=== PATIENT | male | born 1945 | race Caucasian/White ===

== ENCOUNTER 2016-05-22 16:30 | Inpatient (IN) | payer MEDICARE, BC ==
--- NOTE | ~2016-05-22 | A ---
[facility] DATE: 05/24/16 Patient: MONISHA DAI Physician: RAGHAV Address: [address] [place] [address] Room/Bed: [address] [place] [address], Zip: [place] [address] Admit Date: 05/22/16 Date of : 49 Height: 5 8 Weight: 160 72.8 NUTRITIONAL ASSESSMENT: REASON: MD requested for RD to educate pt on 2 gram Na+/ heart healthy diet Diet: 2 gram Na+ 1800 mL fluid restriction Assessment: MD requested for RD to see the patient regarding low sodium/ heart healthy diet, as the pt has apparently already lost weight; however, still consumes high sodium foods. RD spoke with the pt and two family members at bedside. RD discussed the importance of following low sodium diet, in addition to 2 gram Na+ diet strategies in detail with the pt. Pt voiced understanding of the information, and stated "I do not use a salt shaker". RD reviewed foods that are high in sodium (without adding additional salt) and provided suggestions for alternatives. Although the pt voiced understanding of the information, he did not seem motivated to make changes. RD provided printed materials for the pt and his family, as they help him at home. Also provided RD office number for any additional questions. Recommendations: 1. Pt to follow a heart healthy/ 2 gram Na+ diet as instructed by RD, with fluid restriction per MD. Please consult RD for any further nutritional needs. Respectfully, CHAYO MANN RD, [facility] cc: client file
--- NOTE | ~2016-05-22 | CR72 ---
[facility] A Service of [facility] RADIOLOGY TEXT RESULTS PATIENT: MONISHA DAI LOCATION: CEDOF : 47 UNIT #: [id number] AGE: [address]: Delbert Faulkner MD SEX: M ORDER DR: [id number] [facility] [address] [facility]. [place], [place] [address] [id number] MR#: [id number] Acc #: [id number] NAME: MONISHA DAI. : 1945 SEX: M STUDY DATE/TIME: 05/22/2016 16:45 UNIT: CEDOF ROOM: 54856 STUDY DESCRIPTION: CR Chest Single View Portable Attending Physician: Delbert Faulkner M.D. Ordering Physician: Luther Michael M.D. Primary Care Physician: Epi Porter M.D. MEDICAL IMAGING REPORT This report is preliminary unless electronic signature is present EXAM Portable chest INDICATIONS Shortness of air, cough, COPD and dizziness. COMPARISON 02/11/2015. FINDINGS A portable view of the chest is obtained. The heart size and vascularity are normal and the dual-lead pacemaker is in good position. There is very mild interstitial prominence particularly in the right lower lobe, which is new from the prior study. There are no focal infiltrates. IMPRESSION Mild interstitial prominence particularly in the right lower lobe which is more apparent than on 02/11/2015. No infiltrates or effusions are identified. Dictated by... Gabriel Nicole M.D. THIS IS AN ELECTRONICALLY VERIFIED REPORT Gabriel Nicole M.D. at 05/23/2016 8:20 AM JUAN J/sanchez TD: 05/22/2016 23:16 JOB #: [id number] MEDICAL IMAGING REPORT COPY
--- NOTE | ~2016-05-22 | CO ---
Unit #: [id number] #: [id number] Patient: MONISHA PANTOJA [id number] [address] [place], [place] [address] [id number] I MR#: [id number] NAME: MONISHA PANTOJA. ROOM: 332 Age: 71 Sex: M Admission Date: 05/22/2016 : 1945 Attending Physician: Delbert Faulkner M.D. Primary Care Physician: Epi Porter M.D. Consultation Date: 05/23/2016 CONSULTATION REPORT REASON FOR CONSULTATION Respiratory failure, COPD. HISTORY OF PRESENT ILLNESS The patient is a 71-year-old gentleman who has severe COPD, chronic respiratory failure, partially compliance with oxygen, ongoing active tobacco use, severe left ventricular dysfunction. Has had an eight day history of shortness of breath. He states "I tried to fight it off at home by wearing my oxygen." No chest pain, no fever, no hemoptysis. He did have wheezing and white to green sputum. Initially, was on mask ventilation. He has received diuretics, steroids, nebulized bronchodilators and antibiotics and feels better and he currently is on Oxymizer oxygen. PAST MEDICAL HISTORY Remarkable for: 1. Severe end stage COPD. 2. Chronic respiratory failure, partially compliant with oxygen. 3. Severe left ventricular dysfunction with an EF reported to be 15% to 20%. 4. Hyperlipidemia. 5. Hypothyroidism. 6. He has a history of an AICD. 7. Kidney stones. 8. Diverticulitis. 9. Coronary artery disease. MEDICATIONS Medications at home - he states that he is on: 1. Symbicort two puffs twice a day. 2. Ventolin inhaler. 3. Spiriva is listed but he did not mention that when I asked what inhaled medicines he was on. Other medicines listed: 4. Magnesium. 5. Nitesh aspirin. 6. Methimazole. 7. Bystolic. 8. Bumex. ALLERGIES Penicillin with welts. SOCIAL HISTORY Unit #: [id number] #: [id number] Patient: MONISHA PANTOJA He continues to smoke. FAMILY HISTORY No familial lung disease. REVIEW OF SYSTEMS No chest pain, palpitations, abdominal pain, melena, hematochezia, hematuria, dysuria, focal weakness, paresthesia. He did have a little dizziness with his shortness of breath but that is improved. No fever or chills. He states compliance with his CPAP, partial compliance with his oxygen. PHYSICAL EXAMINATION GENERAL: Reveals a patient who is chronically ill-appearing, in no acute distress. Adequate saturations on Oxymizer oxygen. VITAL SIGNS: He is afebrile. Pulse 70, respiratory rate 22, blood pressure is 105/56. 5 foot 8, 162 pounds. HEENT: Pupils equal, round, reactive to light. Sclerae anicteric. Head atraumatic. Neck supple. No supraclavicular or cervical adenopathy appreciated. Mucous membranes moist. He has a few natural teeth in borderline dentition. CHEST: Expiratory wheeze. Prolonged expiratory phase. No definite crackles, no consolidation. CARDIAC EXAMINATION: Reveals regular rate and rhythm. Soft murmur, no gallop. ABDOMEN: Soft, nontender. No hepatomegaly or rebound. EXTREMITIES: No clubbing, cyanosis or edema. No calf tenderness. SKIN: Warm and dry without rash or diaphoresis. NEUROLOGICAL: Grossly intact. No focal muscle or sensory deficits. DIAGNOSTIC STUDIES LABORATORY: Arterial blood gas - pH 7.44, pCO2 41, pO2 139. Initial arterial blood gas - pH 7.46, pCO2 of 38, pO2 of 60 on 2 L. His BUN is 22, creatinine is 1.2. BNP 219. Lactic acid was 2.4, now 1.3. INR normal. Initial cardiac enzymes normal. White blood cell count 15.9, hemoglobin 16.1, platelet count 388. Influenzae screen negative. Urinalysis negative. Blood cultures performed and are pending. Sputum in the past - normal lubna. IMAGING: Chest x-ray - COPD. Borderline enlarged pulmonary arteries. No definite pneumonic infiltrate although there are some mild increased interstitial markings right lower lobe. It was somewhat present two years ago. CARDIOVASCULAR: EKG - PVC, sinus rhythm, nonspecific ST-T wave changes. IMPRESSION Unit #: [id number] #: [id number] Patient: MONISHA PANTOJA 1. Acute exacerbation of chronic obstructive pulmonary disease. 2. Suspect bronchitis, consider pneumonia. 3. Acute on chronic respiratory failure, improving. 4. Severe left ventricular dysfunction with an ejection fraction of 15%. 5. Ongoing active tobacco use. 6. Obstructive sleep apnea, on CPAP. PLAN Maximize pulmonary status, treatment of his COPD with IV steroids, antibiotics, nebulized bronchodilators. At this point, antibiotics for bronchitis really not much evidence of pneumonia by exam history or labs except for mild leukocytosis. Agree with diuresis and keeping on the dry side. I have discussed with the patient and family and he clearly states that he does not want to be resuscitated. Certainly no smoking is of great benefit and this also was discussed with the patient and family. Thank you very much for allowing me to participate in the care of Mr. Pantoja. Dictated by... Payam Kumar M.D. IFRAH/cortney TD: 05/24/2016 06:05 JOB #: [id number] CONSULTATION REPORT X Payam Kumar MD X CONSULTATION REPORT
--- NOTE | ~2016-05-22 | CO ---
Unit #: [id number] #: [id number] Patient: MONISHA DAI [id number] [address] [place], [place] [address] [id number] I MR#: [id number] NAME: MONISHA DAI. ROOM: 332 Age: 71 Sex: M Admission Date: 05/22/2016 : 1945 Attending Physician: Delbert Faulkner M.D. Primary Care Physician: Epi Porter M.D. CONSULTATION REPORT REASON FOR CONSULT CHF exacerbation. HISTORY OF PRESENT ILLNESS This is a pleasant 71-year-old male who is followed by Dr. López in the office. He has a past medical history of systolic congestive heart failure, last known ejection fraction of 15% to 20% per 2D echocardiogram in 2013. He also is status post AICD placement. Also has a past medical history of COPD on chronic oxygen therapy at home, hyperlipidemia, hyperthyroidism, continued tobacco abuse, obstructive sleep apnea, hyperthyroidism. The patient states he was in his typical state of health until approximately eight days ago. About eight days ago he started to notice increasing issues with his breathing. Over the last two days it got worse. Yesterday being extremely bad and, therefore, bringing him into the emergency room for evaluation. He reports he had been trying to do better with his diet. He had cut out his sweets and started eating significant amounts of Hung[employer] Man dinners. He also noticed an increase in fluid retention as well as a 15 pound weight gain over the last several months. The patient also noted an increase in sputum production and some abdominal swelling. He denies any complaints of recent fevers or chills. He does report some episodes of dizziness with near syncope. These have been occurring with position changes. In the emergency room, the patient was found to be hypoxic and in respiratory distress. His oxygen saturations were in the 80s. He was placed on BiPAP 12/5 with 60% FIO2 and respiratory has been consulted to see. Lactic acid was elevated at 2.4. Repeat lactic acid was 1.3. The patient was started on IV antibiotics, Solu-Medrol, and also given some stat diuretic. It is also noticed he is slightly hypotensive, blood pressures in the upper 80s to low 90s. Therefore, his carvedilol has currently been placed on hold. He denies any complaints of chest pain. Initial EKG shows sinus rhythm with PACs, rate of 94 beats per minute. Also, isolated PVC is noted. QTC interval 435 msec. No acute ischemic change. Some nonspecific ST-T wave abnormality is noted. Cardiac enzymes thus far have been negative. He denies any PND or orthopnea. However, the patient states he is on chronic oxygen therapy and he wears a CPAP mask at night. Denies any extensive lower extremity swelling. It is notable the patient underwent cardiac catheterization in 2011. At that time, his left main was normal. LAD mid area is 20% to 30% stenosis. Left circ is a large, codominant vessel which is normal. Right coronary artery is a moderate size codominant vessel. At that time, LVEF was noted to be 25% and he was treated medically. He did have an echocardiogram 12/2013 which showed an ejection fraction of 10% to 15% at that time. Moderate tricuspid regurgitation, right ventricular systolic pressure of Unit #: [id number] #: [id number] Patient: MONISHA DAI 40 mmHg. Mild dilation of the left ventricle. The patient, again, is status post AICD placement with Medtronic device which was placed in September 2011. It was also checked last in December with normal function. At present, he is resting in bed. His family is at bedside. He does still feel somewhat short of breath. He denies any complaints of chest pain. His blood pressure is currently borderline low. He is currently off BiPAP and on an Oxymizer. Chest x-ray shows mild interstitial prominence, particularly the right lower lobe which is more apparent than 02/11. No infiltrates or effusions are identified. His BNP was just mildly elevated at 219. PAST MEDICAL HISTORY 1. COPD, on chronic oxygen at home. 2. Nonischemic cardiomyopathy. 3. Systolic congestive heart failure, last EF 2013 15% to 20%. 4. Hyperthyroidism. 5. Medtronic device AICD September 2011. 6. Hyperlipidemia. 7. Continued tobacco abuse. 8. Coronary artery disease, nonobstructive. 9. Last 2D echo was December 2013 which showed EF of 10% to 15%, moderate tricuspid regurgitation. 10. Cardiac catheterization 2011 which shows some calcification but no stenosis. LAD large vessel that goes around the apex, mid area 20% to 30% stenosed. Left circ is a large vessel, codominant and normal. Right coronary artery is moderate size, codominant approximately. EF at that time was 25%. PAST SURGICAL HISTORY 1. Right leg surgery. 2. Left rotator cuff repair. 3. AICD Medtronic device placed in September 2011. SOCIAL HISTORY The patient is . He continues to smoke, he states about ten cigarettes per day, and has done so for many years. Denies any alcohol or drug use. He is retired from the [employer] office. He states he lives alone. FAMILY HISTORY No known family history of coronary artery disease. ALLERGIES Penicillin. HOME MEDICATIONS 1. Spiriva one puff daily. 2. Symbicort 160/4.5 two puffs inhalation daily. 3. Magnesium oxide 400 mg daily. 4. Baby aspirin 81 mg daily. 5. Methimazole 5 mg p.o. daily Saturday through Saturday. 6. Albuterol sulfate inhalation q.4 hours p.r.n. 7. Bystolic 2.5 mg p.o. daily. 8. Bumex 1 mg p.o. daily. 9. Ventolin one puff inhalation q.4 hours p.r.n. PHYSICAL EXAMINATION Unit #: [id number] #: [id number] Patient: MONISHA DAI GENERAL: The patient is awake, alert and oriented x3. He has family at bedside. He is currently in no acute respiratory distress. VITAL SIGNS: Temperature 97.4, respiratory rate 18-20, pulse 60-70s, blood pressure as low as 88/66 to 105/56. BMI of 24. HEENT: Pupils are equal and round. Mucous membranes are moist. NECK: Trachea is midline. No lymphadenopathy or thyromegaly. Does have present positive JVD. CHEST: Decreased breath sounds throughout. Expiratory wheezes are noted. Some scattered rhonchi. HEART: S1, S2. 1/6 tricuspid regurg murmur is noted. No rub or gallop. ABDOMEN: Distended, soft, nontender. Positive bowel sounds. EXTREMITIES: Pulses are palpable. No clubbing, cyanosis, or edema. NEUROLOGICAL: He is alert and oriented x3. Moves all extremities equally. Follows command with ease. DIAGNOSTIC STUDIES IMAGING: Mild interstitial prominence in the right lower lobe. No infiltrates or effusions. LABORATORY: Cardiac enzymes have been normal x2. Glucose 153, BUN 22, creatinine 1.2, sodium 136, potassium 4.3, chloride 99, CO2 26. BNP was 219. Coags were within normal limits. Hemoglobin 16.1, hematocrit 48.0, WBC 15.9, 84% neutrophils, platelet count of 388. Urinalysis was negative. He currently has blood cultures that are pending. Lactic acid was initially elevated at 2.4. Repeat lactic acid has been 1.3. CARDIOVASCULAR: EKG shows normal sinus rhythm with occasional PACs, isolated PVC. Nonspecific ST-T wave abnormality is noted. No acute ischemic change. QTC interval of 435 msec. ASSESSMENT 1. Acute on chronic hypoxic respiratory failure. 2. Acute on chronic systolic congestive heart failure. 3. Exacerbation of chronic obstructive pulmonary disease. 4. Nonischemic cardiomyopathy. 5. Nonobstructive coronary artery disease. Cardiac cath results - see above. 6. Status post automatic implantable cardioverter defibrillator Medtronic device in 2011. 7. Hyperthyroidism. 8. Hyperlipidemia. 9. Continued tobacco abuse. PLAN The patient has been admitted with acute on chronic hypoxic respiratory failure. He was also currently in exacerbation of his systolic congestive heart failure. He has been given some IV diuretics. He has been started on antibiotics and he is being also followed with pulmonary. The patient does report he has been eating a significant amount of Hung[employer] dinners Unit #: [id number] #: [id number] Patient: MONISHA DAI which are full of sodium over the last week and has noted an increase in weight. He will be placed on a 2 g sodium restricted diet as well as 1800 mL fluid restriction. We will check TSH, A1c and lipid profile. Also, secondary to his complaints of dizziness with some near syncopal episodes with position changes, will check orthostatic blood pressures as well. He has a tendency to run a low blood pressure anyway. At present, his carvedilol is on hold secondary to his hypotension with blood pressures in the upper 80s to low 90s. He will also get a repeat echocardiogram as his last echo was in 2013. Will place him on daily standing weights and ask loom blower to see. Initially, I had considered checking cost on Entresto but after further discussion with the patient, he states that Dr. López had started him on this medication before and it was discontinued secondary to severe hypotension. Will discuss with the patient prior to discharge regarding use of diuretics at home. It appears on admission his potassium was noted to be within normal limits at 4.6. Therefore, it will be discussed with him that if he notices increased swelling or shortness of breath that he can take an additional Lasix at home. We also reviewed the importance of following a sodium restricted diet and fluid restriction. Await further recommendations from dietary. Could consider initiation of Aldactone prior to discharge. Also, I have instructed him regarding the importance of smoking cessation. Pending recommendations pending Dr. López' assessment and await 2D echocardiogram results. Dictated by... Carina Arboleda A.P.R.N. for Edwin López M.D. LMW/df TD: 05/24/2016 08:32 JOB #: [id number] CONSULTATION REPORT X Carina Arboleda APRN X CONSULTATION REPORT
--- NOTE | ~2016-05-22 | DS ---
Unit #: [id number] #: [id number] Patient: MONISHA DAI [id number] [address] [place], [place] [address] [id number] MR#: [id number] NAME: MONISHA DAI. ROOM: 332 Age: 71 Sex: M Admission Date: 05/22/2016 : 1945 Discharge Date: 05/29/2016 Attending Physician: Delbert Faulkner M.D. Primary Care Physician: Epi Porter M.D. DISCHARGE SUMMARY PRINCIPAL DISCHARGE DIAGNOSES 1. Acute on chronic respiratory failure. 2. Exacerbation of chronic obstructive pulmonary disease. 3. Acute on chronic systolic congestive heart failure. 4. Nonsustained ventricular tachycardia. 5. Tobacco use. 6. Hyperthyroidism. 7. Coronary artery disease. 8. Status post automatic implantable cardioverter defibrillator. PROCEDURES None. CONSULTANTS 1. Dr. Kumar - Pulmonary Services. 2. Dr. López - Cardiology. REASON FOR HOSPITALIZATION 71-year-old white male with history of CHF, EF of 15% to 20%, ischemic cardiomyopathy, COPD, hyperlipidemia, hyperthyroidism, ongoing tobacco use, presents to the emergency room with one week of cough, congestion, shortness of air, dyspnea on exertion, dizziness. In the emergency room his white count was 15.9. Influenzae A and B were negative. BNP was 219. Chest x-ray - increased markings right lower lobe but no obvious pneumonia. Lactic acid was elevated. Blood pressure was low. O2 sat was 92%. I am not sure what his FIO2 was. Coags were normal. Cardiac enzymes normal. Random blood sugar 112. Urinalysis normal. ABGs on 2 L showed a pH of 7.461, a pCO2 of 38 and a pAO2 of 60. EKG showed a sinus rhythm, single PVC, lot voltage QRS, nonspecific ST-T abnormality and the patient was admitted. HOSPITAL COURSE The patient was admitted to telemetry, started on IV antibiotics. Cardiology was consulted, pulmonary was consulted. Antihypertensives were held. He was started on IV steroids. CT angiogram of the chest was obtained for further evaluation. He was placed on Lovenox for DVT prophylaxis and Protonix for GI prophylaxis. The patient rapidly improved. TSH was checked and was low. Free T4 and free T3 was checked but I can't find any results although they were ordered. LDL was 124 and he was started on Lipitor. CT angiogram of the chest showed no PE, moderate to severe centrilobular emphysema, basilar fibrosis, atelectasis with a stable right lower lobe noncalcified pulmonary nodule. Mild bilateral hilar lymphadenopathy. 6 to 7 mm nodule stable over a two year period. The patient developed some nonsustained V-tach. His AICD was Unit #: [id number] #: [id number] Patient: MONISHA DAI interrogated and apparently was functioning normally. He was taken off Bystolic, placed on Coreg for better control of his left ventricular dysfunction. Hemoglobin A1c was checked. It was 5.8. Sputum culture grew normal lubna and patient was diuresed. Blood culture no growth at 5 days. BMP this morning is normal except for a sodium of 134, BUN of 44, and a GFR of 53.4. His potassium is 4. He is down to 2 L nasal cannula which is his home dose with an O2 sat of 93%. He will be discharged home on that FIO2. He is to follow up with Dr. Porter in one week, follow up with Dr. Pascual, follow up with Dr. López. He is on a healthy heart diet, 1300 mL per 24 hour fluid restriction. CURRENT MEDICATIONS 1. Albuterol mini nebs q.4 hours p.r.n. 2. Ventolin one puff q.4 hours p.r.n. 3. Symbicort 160/4.5 two puffs q.12. 4. Magnesium 400 mg p.o. daily. 5. Prednisone 40 mg daily for an additional five days. 6. Spiriva one puff daily. 7. Tapazole 5 mg p.o. on Saturday through Saturday. 8. Coreg 6.25 mg p.o. b.i.d. 9. Colace 200 mg p.o. q. h.s. 10. Bumex 1 mg p.o. b.i.d. 11. Lipitor 40 mg p.o. q. h.s. 12. Aspirin 81 mg p.o. daily. 13. Aldactone 25 mg p.o. daily. 14. O2 at 2 L nasal cannula continuously. Discussion was made with the patient about discontinuing his tobacco use. He has no interest in same and says that he will continue to smoke as he did prior to admission despite our warnings. Dictated by... Delbert Faulkner M.D. IRVING/cortney TD: 05/30/2016 11:16 JOB #: [id number] DISCHARGE SUMMARY X Delbert Faulkner MD X DISCHARGE SUMMARY
--- NOTE | ~2016-05-22 | EKG ---
PATIENT: MONISHA DAI UNIT #: [id number] Ventricular Rate: 71 BPM Atrial Rate: 71 BPM P-R Interval: 142 ms QRS Duration: 108 ms Q-T Interval: 424 ms QTC Calculation(Bezet): 460 ms P [place]: 90 degrees Calculated R [place]: -21 degrees Calculated T [place]: 150 degrees Diagnosis Line: Sinus rhythm with occasional Premature ventricular Diagnosis Line: complexes Diagnosis Line: Low voltage QRS Diagnosis Line: Incomplete left bundle branch block Diagnosis Line: T wave abnormality, consider lateral ischemia Diagnosis Line: Prolonged QT Diagnosis Line: Abnormal ECG Diagnosis Line: When compared with ECG of 22-MAY-2016 16:38, Diagnosis Line: Premature ventricular complexes are now Present Diagnosis Line: Aberrant conduction is no longer Present Diagnosis Line: Incomplete left bundle branch block is now Present Diagnosis Line: Confirmed by JONELLE ANDERSON MD ([id number]) on 05/25/2016 Diagnosis Line: 4:45:18 PM INTERPRETING MD: JUSTIN NETTLES
--- NOTE | ~2016-05-22 | HP ---
Unit #: [id number] #: [id number] Patient: MONISHA DAI [id number] [address] [place], [place] [address] [id number] I MR#: [id number] NAME: MONISHA DAI. ROOM: 41163 Age: 71 Sex: M Admission Date: 05/22/2016 : 1945 Attending Physician: Delbert Faulkner M.D. Primary Care Physician: Epi Porter M.D. HISTORY AND PHYSICAL HISTORY OF PRESENT ILLNESS The patient is a 71-year-old white male with a history of congestive heart failure, ejection fraction 15%-20%, ischemic cardiomyopathy, chronic obstructive pulmonary disease, hyperlipidemia, hyperthyroidism and ongoing tobacco use. The patient presented to the emergency room with a one week of cough, congestion, shortness of air, dyspnea on exertion, dizziness. In the emergency room he was afebrile and hypotensive. Lactic acid was elevated. White count was 15.9. Influenza A and B were negative. BNP was 219. Chest x-ray shows increased markings in the right lower lobe, but no obvious pneumonia. EKG was fairly unremarkable. The patient was admitted for septic syndrome and ezspm-bi-ijwzqsj respiratory failure. PAST MEDICAL HISTORY 1. History of chronic obstructive pulmonary disease. 2. Ischemic cardiomyopathy. 3. Hyperthyroidism. 4. Ejection fraction 15%-20%. 5. Atrial implantable cardioverter defibrillator. 6. History of nephrolithiasis. 7. Diverticulitis. 8. Hyperlipidemia. 9. Tobacco use. 10. Congestive heart failure. 11. Coronary artery disease. PAST SURGICAL HISTORY 1. Atrial implantable cardioverter defibrillator. 2. Right leg surgery. 3. Left rotator cuff repair. SOCIAL HISTORY . Smokes a half pack of cigarettes daily. No alcohol or street drug use. FAMILY HISTORY Noncontributory. ALLERGIES Penicillin. PREADMISSION MEDICATIONS 1. Spiriva 1 puff daily. 2. Symbicort 160/4.5 two puffs q.12 h. 3. Magnesium 400 mg daily. Unit #: [id number] #: [id number] Patient: MONISHA DAI 4. Aspirin 81 mg daily. 5. Tapazole 5 mg Saturday through Saturday. 6. Albuterol mini-nebs q.4 h. p.r.n. 7. Bystolic 2.5 mg daily. 8. Bumex 1 mg daily. 9. Ventolin 1 puff q.4 h. p.r.n. PHYSICAL EXAMINATION GENERAL: Awake, alert and oriented times three, in no acute distress. VITALS: Afebrile. Blood pressure has ranged from 88 to 110 systolic over about 64 diastolic. Pulse is 82, respiratory rate 18. He is on 2 liters O2 at home. He originally registered in at 92% in the emergency room, but he eventually ended up on BiPAP. HEENT: Unremarkable except for nasal pillow in place. NECK: Supple without jugular venous distension, bruits, adenopathy or thyromegaly. CHEST: Diffusely decreased breath sounds with mid expiratory wheezes. HEART: Regular rate and rhythm without any murmurs, rubs or gallops. ABDOMEN: Soft, nondistended and nontender with positive bowel sounds and no hepatosplenomegaly. /RECTAL: Deferred. EXTREMITIES: No clubbing, cyanosis or edema. NEUROLOGIC: Grossly intact. DIAGNOSTIC STUDIES IMAGING: Chest x-ray mild interstitial prominence right lower lobe, which is more than 02/11/2015, but no infiltrates or effusions noted. LABORATORY: PT and PTT within normal limits. Cardiac enzymes normal. White blood cell count 16.9 with a left shift. Hemoglobin 16.1, platelets 388,000. Influenza A and B were negative. First lactic acid was 2.4, second one was 1.3. BNP was 219. CMP within normal limits except for random blood sugar of 112. Urinalysis within normal limits. ABGs originally on 2 liters showed a pH of 7.461, pCO2 38, and a PaO2 of 60. On repeat with BiPAP at a rate of 36 and tidal volume 435 and 60%, pH 7.445, pCO2 41, PaO2 139. CARDIOVASCULAR: EKG shows some sinus rhythm, single PVC, low voltage QRS, nonspecific T abnormality. ASSESSMENT 1. Ujvqz-gg-pyfvkqk respiratory failure. 2. Sepsis syndrome. 3. Chronic obstructive pulmonary disease. 4. Congestive heart failure. 5. Left ventricular dysfunction. 6. Hyperthyroidism. 7. Coronary artery disease. 8. Tobacco use. 9. Atrial implantable cardioverter defibrillator. PLAN IV antibiotics per septic protocol. Consult cardiology. Consult pulmonary services. Hold antihypertensives. IV steroids, IV antibiotics. CT angiogram of the chest PE protocol for further evaluation of respiratory failure and to rule out PE. Further evaluation pending results of the above. Please note he has already been started on Lovenox as DVT prophylaxis at 40 mg daily and GI prophylaxis with Protonix. Unit #: [id number] #: [id number] Patient: MONISHA DAI Dictated by Delbert Faulkner M.D. WRK/gz TD: 05/23/2016 08:38 JOB #: [id number] HISTORY AND PHYSICAL X Delbert Faulkner MD X HISTORY AND PHYSICAL
--- NOTE | ~2016-05-22 | CT16 ---
[facility] A Service of [facility] & [facility] RADIOLOGY TEXT RESULTS PATIENT: MONISHA DAI LOCATION: [facility] 332-01 : [birth year] UNIT #: [id number] AGE: [address]: Delbert Faulkner MD SEX: M ORDER DR: [id number] [facility] [address]. [place], [place] [address] [id number] I MR#: [id number] Acc #: [id number] NAME: MONISHA DAI. : 1945 SEX: M STUDY DATE/TIME: 05/23/2016 11:36 UNIT: [address] ROOM: [facility] STUDY DESCRIPTION: CT Angio Chest for PE Attending Physician: Delbert Faulkner M.D. Ordering Physician: Delbert Faulkner M.D. Primary Care Physician: Epi Porter M.D. MEDICAL IMAGING REPORT This report is preliminary unless electronic signature is present EXAM CT chest PE protocol HISTORY 71-year-old male with shortness of air since Saturday, 1 week ago. Dizziness. COMPARISON CT chest, 01/10/[address] exam was performed with one or more of the following radiation dose reduction techniques: automatic exposure control, adjustment of mA and/or kV according to patient size, and iterative reconstruction. FINDINGS Axial images were performed through the chest following IV contrast. 3-D coronal and sagittal reconstructed images were reviewed at a workstation. Examination demonstrates moderate to severe centrilobular emphysema. There are scattered parenchymal opacities lateral aspect right middle lobe and right lung base as well as a small noncalcified nodule right lower lobe measuring about 6.0 mm. This does not appear appreciably changed from prior studies. There is a right lower lobe and to a lesser extent left lower lobe bronchiectasis. Some thickening of the interlobular septa suggests underlying fibrosis. No acute airspace disease. Small amount of right basilar atelectasis. No effusions. Saber-sheath deformity of the trachea commonly seen with emphysema. Normal enhancement of the pulmonary arteries. No evidence of embolus. Heart size within normal limits. The aorta is free dissection or aneurysm. Coronary artery calcifications noted. No significant mediastinal adenopathy. There is some mild bilateral hilar lymphadenopathy. Upper abdomen to include the adrenal glands appears STS. [facility] A Service of [facility] & [facility] RADIOLOGY TEXT RESULTS PATIENT: MONISHA DAI LOCATION: A 332-01 : [birth year] UNIT #: [id number] AGE: [address]: Delbert Faulkner MD SEX: M ORDER DR: normal. Pacemaker noted over the left chest. Thoracic spine, thoracic inlet, extrathoracic soft tissues unremarkable. IMPRESSION 1. No evidence of a pulmonary embolus. 2. Moderate to severe centrilobular emphysema and basilar fibrosis. 3. Small amount of right basilar atelectasis with a stable right lower lobe noncalcified pulmonary nodule. 4. Mild bilateral hilar lymphadenopathy probably represents benign reactive lymphadenopathy related to chronic lung disease. 5. Please note the 6.0-7.0 mm nodule the right lower lobe is reportedly stable on studies dating over 2 years and would support benign disease. Dictated by... Jonathon Anguiano M.D. THIS IS AN ELECTRONICALLY VERIFIED REPORT Jonathon Anguiano M.D. at 05/23/2016 4:54 PM Eber TD: 05/23/2016 14:30 JOB #: [id number] MEDICAL IMAGING REPORT COPY
--- NOTE | ~2016-05-22 | EKG ---
PATIENT: MONISHA DAI UNIT #: [id number] Ventricular Rate: 94 BPM Atrial Rate: 94 BPM P-R Interval: 118 ms QRS Duration: 92 ms Q-T Interval: 348 ms QTC Calculation(Bezet): 435 ms P [place]: 45 degrees Calculated R [place]: -23 degrees Calculated T [place]: 70 degrees Diagnosis Line: Sinus rhythm with Premature atrial complexes with Diagnosis Line: Aberrant conduction Diagnosis Line: Low voltage QRS Diagnosis Line: Nonspecific ST and T wave abnormality Diagnosis Line: Abnormal ECG Diagnosis Line: When compared with ECG of 12-FEB-2015 15:37, Diagnosis Line: Aberrant conduction is now Present Diagnosis Line: Minimal criteria for Anterior infarct are no Diagnosis Line: longer Present Diagnosis Line: Nonspecific T wave abnormality no longer evident Diagnosis Line: in Inferior leads Diagnosis Line: Confirmed by STERLING DAWSON MD ([id number]) on 05/23/2016 Diagnosis Line: 7:29:51 PM INTERPRETING MD: EUNICE NETTLES
[2016-05-22 16:17] LABS: ARTERIAL BLD GAS O2 SATURATION 88.4 % (90.0-100.0); ARTERIAL BLOOD GAS CARBOXY HB 3.1 %sat (0.0-9.0); ARTERIAL BLOOD GAS HCO3 27.5 mmol/L; ARTERIAL BLOOD GAS MET HB 0.4 %sat (0.0-2.0); ARTERIAL BLOOD GAS PCO2 38.6 mmHg (35.0-45.0); ARTERIAL BLOOD GAS pH 7.461 (7.350-7.450)
[2016-05-22 16:18] LABS: ARTERIAL BLOOD GAS ART SITE RIGHT RADIAL; ARTERIAL BLOOD GAS DELIVERY NASAL CANNULA; ARTERIAL BLOOD GAS PO2 60.1 mmHg (80.0-100); ARTERIAL DRAW? YES
[~2016-05-22 16:30] MED LIST: ALBUTEROL MININEB INH; ALBUTEROL MININEB NEB; ALBUTEROL20 ml INH; ASPIRIN81 M1 PO; ASPIRIN81 M2 PO; BUMETANIDE2 M1 PO; BYSTOLIC5 MG PO; COREG3.125 MG PO; CRESTOR PO; DELTASONE20 MG PO; LASIX20 MG PO; LEVAQUIN PO; LIPITOR40 MG PO; LISINOPRIL10 MG PO; MAGNESIUM400 MG PO; METHIMAZOLE5 MG PO; NASAL 02; PROAIR HFA8.5 GM IH; SPIRIVA18 MCG PO; SYMBICORT INH; TAPAZOLE10 MG PO
[2016-05-22 16:31] LABS: BASOPHIL# 0.1 X10e3 (0-0.3); BASOPHIL% 0.4 % (0-2.5); DIFF IND YES; EOSINOPHIL# 0.1 X10e3 (0-0.7); EOSINOPHIL% 0.4 % (0.0-7.0); HEMOGLOBIN 16.1 gm/dL (13.0-16.0); LYMPHOCYTE# 1.2 X10e3 (1.0-3.5); LYMPHOCYTE% 7.7 % (17.0-45.0); MEAN CELL VOLUME 88.9 FL (83-96); MEAN CORPUSCULAR HEMOGLOBIN 29.7 PG (28-34); MEAN CORPUSCULAR HGB CONC 33.4 g/dL (30-36); MEAN PLATELET VOLUME 8.1 FL (6.5-11.5); MONOCYTE# 1.2 X10e3 (0-1.0); MONOCYTE% 7.5 % (3.0-12.0); NEUTROPHIL# 13.4 X10e3 (1.5-7.1); PLATELET COUNT 388 X10e3 (140-420); RED CELL DISTRIBUTION WIDTH 13.7 % (11.0-15.5); WHITE BLOOD COUNT 15.9 X10e3 (4.0-10.5)
[2016-05-22 16:38] LABS: PARTIAL THROMBOPLASTIN TIME 27.6 SECONDS (23.5-31.3); PROTHROMBIN TIME (PATIENT) 10.7 SECONDS (9.6-11.5)
[2016-05-22 16:40] LABS: POC - CKMB 6.4 ng/mL (0.0-7.9); POC - TROPONIN <0.05 ng/mL (<=0.05)
[2016-05-22 16:46] LABS: PLATELET ESTIMATE NORMAL (NORMAL)
[2016-05-22 16:47] LABS: RBC NORMAL YES
[2016-05-22 17:04] LABS: INFLUENZA A NEG (NEG); INFLUENZA B NEG (NEG)
[2016-05-22 17:16] LABS: ALBUMIN SERUM 3.7 g/dL (3.5-5.0); ALKALINE PHOSPHATASE 82 U/L (32-92); ALT (SGPT) 34 U/L (10-40); AST (SGOT) 28 U/L (10-42); BILIRUBIN, DIRECT 0.2 mg/dL (0.0-0.2); BILIRUBIN,INDIRECT 0.4 mg/dL (0.0-0.9); BILIRUBIN,TOTAL 0.6 mg/dL (0.2-2.0); BLOOD UREA NITROGEN 14 mg/dL (9-23); BUN/CREATININE RATIO 12.72; CALCIUM SERUM 9.4 mg/dL (8.4-10.2); CARBON DIOXIDE 27 mmol/L (22-31); CHLORIDE 98 mmol/L (100-111); CREATININE SERUM 1.1 mg/dL (0.6-1.4); GLOM FILT RATE Estimated ABOVE60 mL/min (>60); GLUCOSE FASTING 112 mg/dL (70-110); POTASSIUM 4.6 mmol/L (3.5-5.1); PROTEIN TOTAL SERUM 7.3 g/dL (6.0-8.3); SODIUM 137 mmol/L (135-145)
[2016-05-22 17:36] LABS: ARTERIAL BLD GAS O2 SATURATION 96.2 % (90.0-100.0); ARTERIAL BLOOD GAS CARBOXY HB 2.3 %sat (0.0-9.0); ARTERIAL BLOOD GAS HCO3 28.2 mmol/L; ARTERIAL BLOOD GAS MET HB 0.7 %sat (0.0-2.0); ARTERIAL BLOOD GAS PCO2 41.1 mmHg (35.0-45.0); ARTERIAL BLOOD GAS pH 7.445 (7.350-7.450)
[2016-05-22 17:37] LABS: ARTERIAL BLOOD GAS ART SITE RIGHT RADIAL; ARTERIAL BLOOD GAS DELIVERY BIPAP; ARTERIAL DRAW? YES
[2016-05-22] MEDS ORDERED: SPIRIVA18 MCG INH (18:28)
[2016-05-22] MEDS ORDERED: BAYER CHEWABLE81 MG PO (18:29)
[2016-05-22] MEDS ORDERED: SYMBICORT INH (18:29)
[2016-05-22] MEDS ORDERED: MAGNESIUM400 MG PO (18:29)
[2016-05-22] MEDS ORDERED: ALBUTEROL0.83 MG/ML INH (18:30)
[2016-05-22] MEDS ORDERED: METHIMAZOLE5 MG PO (18:30)
[2016-05-22] MEDS ORDERED: BYSTOLIC2.5 MG PO (18:31)
[2016-05-22] MEDS ORDERED: BUMETANIDE1 MG PO (18:32)
[2016-05-22] MEDS ORDERED: ALBUTEROL17 GM INH (18:32)
[2016-05-22 18:40] LABS: POC - CKMB 3.6 ng/mL (0.0-7.9); POC - TROPONIN <0.05 ng/mL (<=0.05)
[2016-05-22 18:46] LABS: URINE SOURCE CLEAN CATCH
[2016-05-22 18:54] LABS: URINE APPEARANCE CLEAR; URINE BILIRUBIN NEG (NEG); URINE BLOOD NEG (NEG); URINE COLOR YELLOW; URINE GLUCOSE NEG (NEG); URINE KETONE TRACE (NEG); URINE LEUKOCYTE ESTERASE NEG (NEG); URINE NITRATE NEG (NEG); URINE PH 5.5 (5-8); URINE PROTEIN NEG (NEG); URINE SPECIFIC GRAVITY 1.024 (1.003-1.035); URINE UROBILINOGEN 0.2 MG/DL (NEG)
[2016-05-22 18:56] LABS: CULTURE INDICATED? NO
[2016-05-23 08:17] LABS: BLOOD UREA NITROGEN 22 mg/dL (9-23); BUN/CREATININE RATIO 18.33; CALCIUM SERUM 8.4 mg/dL (8.4-10.2); CARBON DIOXIDE 26 mmol/L (22-31); CHLORIDE 99 mmol/L (100-111); CREATININE SERUM 1.2 mg/dL (0.6-1.4); GLOM FILT RATE Estimated ABOVE60 mL/min (>60); GLUCOSE FASTING 153 mg/dL (70-110); POTASSIUM 4.3 mmol/L (3.5-5.1); SODIUM 136 mmol/L (135-145)
[2016-05-23 13:43] LABS: CHOLESTEROL 181 mg/dL (0-200); HDL CHOLESTEROL 38 mg/dL (29-75); LDL CHOLESTEROL 124 mg/dL (-130); LDL/HDL RATIO 3 RATIO (0-4); TRIGLYCERIDES 95 mg/dL (10-160)
[2016-05-24 05:47] LABS: HEMATOCRIT 40.9 % (38.0-50.0); MEAN CELL VOLUME 87.6 FL (83-96); MEAN CORPUSCULAR HEMOGLOBIN 29.1 PG (28-34); MEAN CORPUSCULAR HGB CONC 33.3 g/dL (30-36); RED BLOOD COUNT 4.66 X10e (3.90-5.60); WHITE BLOOD COUNT 16.7 X10e3 (4.0-10.5)
[2016-05-24 05:48] LABS: HEMOGLOBIN 13.6 gm/dL (13.0-16.0)
[2016-05-24 06:32] LABS: BLOOD UREA NITROGEN 26 mg/dL (9-23); CALCIUM SERUM 8.2 mg/dL (8.4-10.2); CARBON DIOXIDE 27 mmol/L (22-31); CHLORIDE 102 mmol/L (100-111); GLOM FILT RATE Estimated ABOVE60 mL/min (>60); GLUCOSE FASTING 142 mg/dL (70-110); POTASSIUM 4.2 mmol/L (3.5-5.1); SODIUM 134 mmol/L (135-145)
[2016-05-24 20:24] LABS: CREATININE SERUM 1.5 mg/dL (0.6-1.4); GLOM FILT RATE Estimated 49.3 mL/min (>60); MAGNESIUM 2.1 mg/dL (1.6-3.0)
[2016-05-25 08:46] LABS: BUN/CREATININE RATIO 20.76; CALCIUM SERUM 8.6 mg/dL (8.4-10.2); CREATININE SERUM 1.3 mg/dL (0.6-1.4); GLOM FILT RATE Estimated 58.2 mL/min (>60); POTASSIUM 3.9 mmol/L (3.5-5.1)
[2016-05-26 09:42] LABS: HEMATOCRIT 45.5 % (38.0-50.0); MEAN CELL VOLUME 88.8 FL (83-96); MEAN CORPUSCULAR HEMOGLOBIN 29.2 PG (28-34); MEAN CORPUSCULAR HGB CONC 32.9 g/dL (30-36); MEAN PLATELET VOLUME 7.8 FL (6.5-11.5); RED BLOOD COUNT 5.12 X10e (3.90-5.60); RED CELL DISTRIBUTION WIDTH 13.9 % (11.0-15.5); WHITE BLOOD COUNT 14.3 X10e3 (4.0-10.5)
[2016-05-26 10:10] LABS: BUN/CREATININE RATIO 23.57; CALCIUM SERUM 8.8 mg/dL (8.4-10.2); CREATININE SERUM 1.4 mg/dL (0.6-1.4); GLOM FILT RATE Estimated 53.4 mL/min (>60); MAGNESIUM 2.1 mg/dL (1.6-3.0); POTASSIUM 4.2 mmol/L (3.5-5.1)
[2016-05-27 06:43] LABS: BLOOD UREA NITROGEN 39 mg/dL (9-23); CALCIUM SERUM 9.2 mg/dL (8.4-10.2); CARBON DIOXIDE 36 mmol/L (22-31); CHLORIDE 94 mmol/L (100-111); CREATININE SERUM 1.2 mg/dL (0.6-1.4); GLOM FILT RATE Estimated ABOVE60 mL/min (>60); GLUCOSE FASTING 138 mg/dL (70-110); MAGNESIUM 2.4 mg/dL (1.6-3.0); POTASSIUM 4.3 mmol/L (3.5-5.1); SODIUM 140 mmol/L (135-145)
[2016-05-29 06:31] LABS: BUN/CREATININE RATIO 31.42; CALCIUM SERUM 8.8 mg/dL (8.4-10.2); CREATININE SERUM 1.4 mg/dL (0.6-1.4); GLOM FILT RATE Estimated 53.4 mL/min (>60)
[2016-05-29] MEDS ORDERED: COREG6.25 MG PO (08:16)
[2016-05-29] MEDS ORDERED: PREDNISONE PO (08:16)
[2016-05-29] MEDS ORDERED: DOCUSATE SODIU100 MG PO (08:17)
[2016-05-29] MEDS ORDERED: LIPITOR40 MG PO (08:17)
[2016-05-29] MEDS ORDERED: ALDACTONE25 MG PO (08:18)
[2016-05-29] MEDS ORDERED: OXYGEN INH (08:18)
== END 2016-05-29 11:00 | disposition home or self-care (01) | DRG 291 ==
LOC: CED 16:30 → CEDOF 19:00 → C3A PCU 05-23 11:55
PROVIDERS: Emergency Medicine; Internal Medicine; Nurse Practitioner
PROC: B24BYZZ Ultrasonography of Heart with Aorta using Other Contrast (ICD-10-PCS; principal; 2016-05-23)
DX: I50.23 Acute on chronic systolic (congestive) heart failure (principal); J96.21 Acute and chronic respiratory failure with hypoxia; I47.2 Ventricular tachycardia; J44.1 Chronic obstructive pulmonary disease with (acute) exacerbation; I42.8 Other cardiomyopathies; J98.11 Atelectasis; F17.200 Nicotine dependence, unspecified, uncomplicated; E05.90 Thyrotoxicosis, unspecified without thyrotoxic crisis or storm; Z95.810 Presence of automatic (implantable) cardiac defibrillator; I25.10 Atherosclerotic heart disease of native coronary artery without angina pectoris; Z79.82 Long term (current) use of aspirin; Z88.0 Allergy status to penicillin; R91.8 Other nonspecific abnormal finding of lung field; I10 Essential (primary) hypertension; G47.33 Obstructive sleep apnea (adult) (pediatric); Z66 Do not resuscitate
CPT/HCPCS: 36415; 36600; 71010; 71275; 80048; 80061; 80076; 81003; 82553; 82803; 83036; 83605; 83735; 83880; 84443; 84484; 85025; 85027; 85610; 85730; 87040; 87070; 87205; 87804; 93005; 93306; 94640; 94660; 94664; 94760; 96365; 96375; 99291; C9113; J1650; J1940; J1956; J2920; J2930; J3370; Q9967

== ENCOUNTER 2016-07-11 05:31 | Emergency (ER) | payer BC, MEDICARE ==
--- NOTE | ~2016-07-11 | CR126 ---
[facility] A Service of [facility] & [facility] RADIOLOGY TEXT RESULTS PATIENT: MONISHA DAI LOCATION: [facility] : 47 UNIT #: [id number] AGE: [address]: Samantha Bell MD SEX: M ORDER DR: [id number] [facility] [address] [facility]. [place], [place] [address] [id number] E MR#: [id number] Acc #: [id number] NAME: MONISHA DAI. : 1945 SEX: M STUDY DATE/TIME: 07/11/2016 3:15 UNIT: [facility] ROOM: STUDY DESCRIPTION: CR Foot Complete Min 3 View Lt Attending Physician: Samantha Bell M.D. Ordering Physician: Ed Doctor [id number] [facility] Primary Care Physician: Epi Porter M.D. MEDICAL IMAGING REPORT This report is preliminary unless electronic signature is present EXAM Left foot INDICATION Left foot pain after stubbing toe on bed. FINDINGS 3 views of the left foot were obtained. No fracture is visible. The bones are normal. IMPRESSION Normal left foot. Dictated by... Gabriel Nicole M.D. THIS IS AN ELECTRONICALLY VERIFIED REPORT Gabriel Nicole M.D. at 07/11/2016 2:21 PM JUAN J/juan TD: 07/11/2016 06:21 JOB #: [id number] MEDICAL IMAGING REPORT Page 1 of 1 COPY
[~2016-07-11 05:31] MED LIST changes: +ALBUTEROL0.83 MG/ML INH; +ALBUTEROL17 GM INH; +ALDACTONE25 MG PO; +BAYER CHEWABLE81 MG PO; +BUMETANIDE1 MG PO; +BYSTOLIC2.5 MG PO; +COREG6.25 MG PO; +DOCUSATE SODIU100 MG PO; +OXYGEN INH; +PREDNISONE PO; +SPIRIVA18 MCG INH
[2016-07-11 06:01] LABS: BASOPHIL# 0.1 X10e3 (0-0.3); BASOPHIL% 0.6 % (0-2.5); EOSINOPHIL# 0.1 X10e3 (0-0.7); EOSINOPHIL% 0.5 % (0.0-7.0); HEMATOCRIT 39.9 % (38.0-50.0); LYMPHOCYTE# 1.2 X10e3 (1.0-3.5); LYMPHOCYTE% 9.6 % (17.0-45.0); MEAN CELL VOLUME 88.2 FL (83-96); MEAN CORPUSCULAR HEMOGLOBIN 28.7 PG (28-34); MEAN CORPUSCULAR HGB CONC 32.5 g/dL (30-36); MEAN PLATELET VOLUME 7.7 FL (6.5-11.5); MONOCYTE# 0.8 X10e3 (0-1.0); MONOCYTE% 6.9 % (3.0-12.0); NEUTROPHIL# 10.2 X10e3 (1.5-7.1); NEUTROPHIL% 82.4 % (40-75); PLATELET COUNT 305 X10e3 (140-420); RED BLOOD COUNT 4.53 X10e (3.90-5.60); WHITE BLOOD COUNT 12.3 X10e3 (4.0-10.5)
[2016-07-11 06:07] LABS: DIFF IND NO
[2016-07-11 06:21] LABS: CALCIUM SERUM 8.8 mg/dL (8.4-10.2); GLOM FILT RATE Estimated 76.5 mL/min (>60); POTASSIUM 4.2 mmol/L (3.5-5.1); URIC ACID 6.7 mg/dL (2.6-7.2)
== END 2016-07-11 07:12 | disposition home or self-care (01) ==
LOC: CED 05:31
PROVIDERS: Emergency Medicine
DX: M79.675 Pain in left toe(s) (principal); Z79.899 Other long term (current) drug therapy; Z88.0 Allergy status to penicillin
CPT/HCPCS: 73630; 80048; 84550; 85025; 87040; 99283

== ENCOUNTER → 2016-08-06 | Outpatient (CLI) | payer BC ==
[2016-08-06 14:12] LABS: BUN/CREATININE RATIO 17.5; CALCIUM SERUM 9.3 mg/dL (8.4-10.2); CREATININE SERUM 1.2 mg/dL (0.6-1.4); GLOM FILT RATE Estimated 61.3 mL/min (>60); MAGNESIUM 2.1 mg/dL (1.6-3.0); POTASSIUM 4.3 mmol/L (3.5-5.1)
== END | disposition home or self-care (01) ==
LOC: CLAB 12:55
DX: I50.9 Heart failure, unspecified (principal)
CPT/HCPCS: 36415; 80048; 83735

== ENCOUNTER → 2016-08-06 | Outpatient (CLI) | payer BC ==
[2016-08-06 14:13] LABS: THYROID STIMULATING HORMONE 0.57 uIU/ml (0.34-5.60)
[2016-08-06 14:18] LABS: FREE T3 3.2 pg/mL (2.5-3.9)
[2016-08-06 14:19] LABS: FREE THYROXIN (T4) 0.75 ng/dL (0.58-1.64)
== END | disposition home or self-care (01) ==
LOC: CLAB 12:59
PROVIDERS: Internal Medicine Endocrinology, Diabetes & Metabolism
DX: E05.90 Thyrotoxicosis, unspecified without thyrotoxic crisis or storm (principal)
CPT/HCPCS: 84439; 84443; 84481